=== PATIENT | male | born 2000 | race Two or more races ===

== ENCOUNTER 2021-12-06 22:50 | Emergency (ER) | payer MEDICAID ==
[~2021-12-06] VITALS: Ht 182.9 cm; Wt 100.0 kg
[2021-12-06 23:07] VITALS: BP 140/86
[2021-12-07] MEDS ORDERED: IBUP800T26 PO (02:45)
== END 2021-12-07 02:50 | disposition home or self-care (01) ==
LOC: ER 22:50
DX: S50.02XA Contusion of left elbow, initial encounter (principal); W01.0XXA Fall on same level from slipping, tripping and stumbling without subsequent striking against object, initial encounter; Y93.89 Activity, other specified; Y92.89 Other specified places as the place of occurrence of the external cause; Y99.8 Other external cause status
CPT/HCPCS: 73080